=== PATIENT | female | born 1995 | race Caucasian/White ===

== ENCOUNTER 2018-04-11 21:48 | Emergency (ER) | payer MEDICAID ==
[2018-04-11 23:25] LABS: URINE BLOOD (Dip) POC 1+ (NEGATIVE); URINE GLUCOSE (Dip) POC Negative (NEGATIVE); URINE KETONES (Dip) POC 2+ (NEGATIVE); URINE LEUKOCYTE EST (Dip) POC Negative (NEGATIVE); URINE NITRITE (Dip) POC Negative (NEGATIVE); URINE TOTAL PROTEIN POC Trace (NEGATIVE)
[2018-04-11] MEDS: KETOROLAC 30 MG INJ IM (23:33)
== END 2018-04-12 01:27 | disposition home or self-care (01) ==
LOC: FTE 04-12 01:27
DX: M54.5 Low back pain (principal); M79.605 Pain in left leg
CPT/HCPCS: 72100; 73510; 73550; 81003; 81025; 96372; 99284-25

== ENCOUNTER 2018-08-15 17:16 | Emergency (ER) | payer MEDICAID ==
[2018-08-15] MEDS: IBUPROFEN 600 MG TAB PO (17:54)
[2018-08-15] MEDS: DEXAMETHASONE 4 MG TAB PO (17:55)
[2018-08-15] MEDS: CIPROFLOXACIN HCL OTIC DROP 0.25 ML RIGHT EAR (17:55)
== END 2018-08-15 18:16 | disposition home or self-care (01) ==
LOC: FTE 17:16
DX: H60.501 Unspecified acute noninfective otitis externa, right ear (principal)
CPT/HCPCS: 99283; Z7502

== ENCOUNTER 2018-09-23 10:12 | Emergency (ER) | payer MEDICAID ==
[2018-09-23] MEDS: KETOROLAC 30 MG INJ IM (11:13)
== END 2018-09-23 12:00 | disposition home or self-care (01) ==
LOC: FTE 10:12
DX: R05 Cough (principal); R52 Pain, unspecified; J45.909 Unspecified asthma, uncomplicated
CPT/HCPCS: 81025; 96372; 99284-25

== ENCOUNTER 2018-12-04 11:05 | Emergency (ER) | payer MEDICAID | END 2018-12-04 12:46 | disposition home or self-care (01) | LOC: FTE 11:05 | DX: R05 Cough (principal) | CPT/HCPCS: 99283 ==